=== PATIENT | female | born 1970 ===

== ENCOUNTER → 2022-08-21 12:44 | Outpatient (BNVA) | payer OTHER, SELFPAY | PROVIDERS: PCP Internal Medicine; Visit Provider Internal Medicine Rheumatology | DX: M47.812 Spondylosis without myelopathy or radiculopathy, cervical region (principal); M25.50 Pain in unspecified joint; M19.071 Primary osteoarthritis, right ankle and foot; M19.072 Primary osteoarthritis, left ankle and foot; M47.816 Spondylosis without myelopathy or radiculopathy, lumbar region; M79.7 Fibromyalgia | CPT/HCPCS: 99202 ==

== ENCOUNTER 2022-12-06 10:20 | Outpatient (AMB) | payer OTHER, SELFPAY ==
[2022-12-06 10:23] VITALS: BP 130/70; PULSE 65; TEMP 36.4; O2SAT 97
--- NOTE | 2022-12-06 10:23 | MHC.OFFVIS ---
Intake Vital Signs 12/06/22 10:23 Weight 187 lb 9.814 oz BP 130/70 Blood Pressure Location Rt brachial Position Sitting Pulse 65 Pulse Source Pulse Oximeter Temp 97.5 F Temp Source Tympanic Pulse Oximetry (%) 97 Oxygen Delivery Method Room Air Intake Visit Reasons: Polyarthralgia Pre Sales Technical Consultant Required: Yes Pre Sales Technical Consultant Name: #[id number] Allergies penicillins Allergy (Unknown, Uncoded 12/06/22 10:35) Itching Medication List - Last Reconciled 12/06/22 by Deisy Willingham RN acetaminophen ER 650 mg PO DAILY amlodipine 5 mg PO DAILY atorvastatin 80 mg PO DAILY cetirizine 10 mg PO DAILY cyclobenzaprine 10 mg PO BID gabapentin Two capsules at night for week, then 1 cap in the morning and 2 at night for week, then 1 cap in the morning and 3 capsules at night thereafter indapamide 1.25 mg PO QAM lidocaine 5% 1 patch topical DAILY metformin ER 500 mg PO DAILY omeprazole 20 mg PO DAILY triamcinolone acetonide 0.025% 1 appl topical BID HPI HPI Comments History of Present Illness Details The patient returns for evaluation of her osteoarthritis and fibromyalgia. Today's visit is facilitated through the use of the iPad translating service. She seems to be tolerating the gabapentin, taking 100 mg in the morning and 300 mg at night. She does not think there has been any improvement in her pain syndrome. She still describes fairly widespread muscle, bone and joint pains. This includes pains in the neck, shoulders, hands, lower back, buttock region, and knees. She did receive a trochanteric corticosteroid injection at [place] for left trochanteric bursitis. That helped to some degree. So far the gabapentin has not been sedating and she does not have any trouble with cognitive activities after taking the gabapentin. [facility] Medical History Helicobacter pylori stool test positive Surgical History H/O vaginal hysterectomy Hx of colonoscopy Family History Sister Breast cancer Father FH: prostate cancer Mother Leukemia Sister Colon polyps Brother Lymphoma Social History Alcohol intake: never Patient Tobacco Use Status: Never used Tobacco e-Cigarette/Vaping Use: Never Used Review of Systems Const Details: Low energy persists. Negative for appetite change, weight change, fever, chills, malaise Eyes Details: Negative for vision change, dry eyes,headaches and dizziness Card Details: Negative chest pain, edema and syncope Resp Details: Negative for SOB, cough and wheezing GI Details: Negative indigestion/heartburn, nausea, abdominal pain, bowel changes, diarrhea, constipation and bloody stool. Endo Details: Negative for polyuria and polydypsia Nando/Lymph Details: Negative for excessive bruising or bleeding. Physical Exam Vital Signs: Last Vital Signs Temp 97.5 F 12/06/22 10:23 Pulse 65 12/06/22 10:23 BP 130/70 12/06/22 10:23 Pulse Ox 97 12/06/22 10:23 Oxygen Delivery Method Room Air 12/06/22 10:23 APPEARANCE: Patient in no acute distress EYES no redness, pupils equal and reactive to light, eyelids normal. No temporal artery tenderness, redness or swelling. Cervical Spine:? Mild pain with extremes of range of motion and some mild cervical muscle tenderness. Thoracic Spine:.? No scoliosis.? No tenderness on palpation. Lumbar Spine:.? Alignment normal.? Full range of motion with mild pain at the extremes.? There is some paraspinal muscle tenderness. Chest Wall:.? No tenderness, swelling, increased warmth or erythema. Hands:.? Right: Normal pain-free range of motion.? There is some tenderness at the thumb CMC and thumb MCP.? No swelling.? No triggering, sensory loss or thenar atrophy.? Left:? Mild tenderness across the 2nd and 3rd MCP joint without swelling.? Otherwise the joints have normal pain-free range of motion without tenderness, swelling, increased warmth or erythema.? There is no thenar atrophy or sensory loss. Wrists:? Mild discomfort with flexion extension at 60 degrees with some slight tenderness but no swelling, increased warmth or erythema. Elbows: Normal pain-free range of motion without tenderness, swelling, increased warmth or erythema. Shoulders:? Right: Slight discomfort with extremes of normal range of motion with some in trapezius and anterior tenderness.? No abductor weakness or adenopathy.? Left: Mild pain with abduction 150 degrees or with extremes of internal or external rotation.? There is mild anterior tenderness without abductor weakness, swelling or adenopathy. Hips:? Full range of motion with some slight lateral buttock and posterior buttock pain at the extremes of external rotation or abduction.? There is no groin pain with motion. Hip bursa:.? Mild bilateral trochanteric tenderness. Knees:?? Normal pain-free range of motion with mild patellofemoral crepitus.? There is some slight medial compartment tenderness but no effusion, soft tissue swelling, increased warmth or erythema.? Ankles:.? Normal pain-free range of motion without tenderness, swelling, increased warmth or erythema. Feet:.? Normal pain-free range of motion with slight tenderness in the instep and MTP joints but no swelling, increased warmth or erythema. Tender points:? Mild tenderness to digital palpation at the occiput, trapezius, second rib, lateral epicondyle, knees, greater trochanter and gluteal area bilaterally. ? Assessment & Plan Assessment & Plan (1) Cervical osteoarthritis: Code(s): M47.812 - Spondylosis without myelopathy or radiculopathy, cervical region (2) Osteoarthritis of lumbar spine: Code(s): M47.816 - Spondylosis without myelopathy or radiculopathy, lumbar region (3) Fibromyalgia: Code(s): M79.7 - Fibromyalgia Plan Fibromyalgia with no apparent improvement with the low doses of gabapentin. She of course also has findings of osteoarthritis in the cervical and lumbar spine regions which would not be expected to respond much to the gabapentin treatment. She does take occasional cyclobenzaprine at nighttime if she cannot sleep well and uses acetaminophen during the daytime as well. We discussed possibly higher doses of gabapentin might be helpful for her. We will double the dose to 200 mg in the morning and 600 mg at night. She was warned that the increased dose of the gabapentin could cause more sedation. She could cut the dose of gabapentin back if she gets too sedated. Light aerobic activity is encouraged. Today's visit including review of her [place] record, today's history, exam, and treatment plan took 32 minutes. A follow-up is scheduled for\n 3-4 months. [address] Medications: Changed From gabapentin Two capsules at night for week, then 1 cap in the morning and 2 at night for week, then 1 cap in the morning and 3 capsules at night thereafter 120 caps 0RF migraine M79.7 - Fibromyalgia To gabapentin Two capsules in AM and 6 cap at night 240 caps 3RF migraine M79.7 - Fibromyalgia Coding Level of Care Code Est Pt Level 4 (49042) Diagnoses Cervical osteoarthritis M47.812 Osteoarthritis of lumbar spine M47.816 Fibromyalgia M79.7
== END 2022-12-06 11:06 | disposition home or self-care (01) ==
PROVIDERS: PCP Internal Medicine; Visit Provider Internal Medicine Rheumatology
DX: M47.812 Spondylosis without myelopathy or radiculopathy, cervical region (principal); M47.816 Spondylosis without myelopathy or radiculopathy, lumbar region; M79.7 Fibromyalgia
CPT/HCPCS: 99214

== ENCOUNTER → 2022-12-06 10:20 | Outpatient (BNVA) | payer OTHER, SELFPAY | PROVIDERS: PCP Internal Medicine; Visit Provider Internal Medicine Rheumatology | DX: M47.812 Spondylosis without myelopathy or radiculopathy, cervical region (principal); M47.816 Spondylosis without myelopathy or radiculopathy, lumbar region; M79.7 Fibromyalgia | CPT/HCPCS: 99212 ==

== ENCOUNTER 2023-03-05 13:09 | Outpatient (AMB) | payer OTHER, SELFPAY ==
[2023-03-05 13:11] VITALS: BP 138/73; PULSE 73; TEMP 36.1; O2SAT 98; BMI 37.5
--- NOTE | 2023-03-05 13:11 | MHC.OFFVIS ---
Intake Vital Signs 03/05/23 13:11 Height 5 ft 1 in Weight 198 lb 6.656 oz BMI 37.5 BP 138/73 Blood Pressure Location Lt brachial Position Sitting Pulse 73 Pulse Source Pulse Oximeter Temp 97 F Temp Source Skin Pulse Oximetry (%) 98 Oxygen Delivery Method Room Air Intake Visit Reasons: RA/OA Intake Note: Patient presents today to follow up on RA/OA. Commercial Field Inspector Required: Yes Commercial Field Inspector Language: [employer] Name: Shane [id number] Accompanied by: Self / Same As Patient Allergies penicillins Allergy (Unknown, Uncoded 03/05/23 13:13) Itching Medication List - Last Reconciled 03/05/23 by Alejandro Ayala MD acetaminophen ER 650 mg PO DAILY atorvastatin 80 mg PO DAILY buspirone 5 mg PO TID cyclobenzaprine 10 mg PO BID fluoxetine 10 mg PO DAILY gabapentin Two capsules in AM and 6 cap at night hydroxyzine HCl 10 mg PO TID lidocaine 5% 1 patch topical DAILY lisinopril 5 mg PO DAILY metformin ER 500 mg PO DAILY omeprazole 20 mg PO DAILY trazodone 50 mg PO BEDTIME triamcinolone acetonide 0.025% 1 appl topical BID HPI HPI Comments History of Present Illness Details The patient presents today for evaluation of her fibromyalgia. We use the [email or web address] translating service to facilitate the visit. She again describes pain that is fairly widespread involving the shoulders, arms, hips, lower back and knees. She is on gabapentin now taking 200 mg in the morning and 600 mg in the evening. This has helped to some degree. She also supplements the evening dose with cyclobenzaprine and trazodone at times and with fluoxetine 10 mg daily, lidocaine patches and acetaminophen during the daytime. She denies any daytime sedation with this regimen. It seems the right shoulder and arm of the most problematic areas for her. She does recall a distant injury to the shoulder. There may have been some distant courses of physical therapy for the shoulder as well. [facility] Medical History Helicobacter pylori stool test positive Surgical History Hx of colonoscopy H/O vaginal hysterectomy Family History Sister Breast cancer Father FH: prostate cancer Mother Leukemia Sister Colon polyps Brother Lymphoma Social History Alcohol intake: never Patient Tobacco Use Status: Never used Tobacco e-Cigarette/Vaping Use: Never Used Review of Systems Const Details: Low energy at times. Negative for appetite change, weight change, fever, chills, malaise Skin/Breast Details: Negative for itching, rash, hives, Raynaud's symptoms, sun sensitivity, and skin cancer Endo Details: Negative for polyuria and polydypsia Nando/Lymph Details: Negative for excessive bruising or bleeding. Physical Exam Vital Signs: Last Vital Signs Temp 97 F 03/05/23 13:11 Pulse 73 03/05/23 13:11 BP 138/73 03/05/23 13:11 Pulse Ox 98 03/05/23 13:11 Oxygen Delivery Method Room Air 03/05/23 13:11 BMI result Body Mass Index 37.5 APPEARANCE: Patient in no acute distress EYES no redness, pupils equal and reactive to light, eyelids normal. No temporal artery tenderness, redness or swelling. Joint exam: Cervical Spine:? Mild pain with extremes of range of motion and some mild cervical muscle tenderness. Thoracic Spine:.? No scoliosis.? No tenderness on palpation. Lumbar Spine:.? Alignment normal.? Full range of motion with mild pain at the extremes.? There is some paraspinal muscle tenderness. Chest Wall:.? No tenderness, swelling, increased warmth or erythema. Hands:.? Right: Normal pain-free range of motion.? There is some tenderness at the thumb CMC and thumb MCP.? No swelling.? No triggering, sensory loss or thenar atrophy.? Left:? Mild tenderness across the 2nd and 3rd MCP joint without swelling.? Otherwise the joints have normal pain-free range of motion without tenderness, swelling, increased warmth or erythema.? There is no thenar atrophy or sensory loss. Wrists:? Mild discomfort with flexion extension at 60 degrees with some slight tenderness but no swelling, increased warmth or erythema. Elbows: Normal pain-free range of motion without tenderness, swelling, increased warmth or erythema. Shoulders:? Right: Mild pain with abduction 120 degrees or with more than 20 degrees of internal or external rotation. Pain is felt over the anterior top of the shoulder area. There is mild tenderness anteriorly, in the subacromial region, and posteriorly. I do not really detect any abductor weakness or adenopathy.? Left: Mild pain with the extremes of normal abduction or with extremes of internal or external rotation.? There is mild anterior tenderness without abductor weakness, swelling or adenopathy. Hips:? Full range of motion with some slight lateral buttock and posterior buttock pain at the extremes of external rotation or abduction.? There is no groin pain with motion. Hip bursa:.? Mild bilateral trochanteric tenderness. Knees:?? Normal pain-free range of motion with mild patellofemoral crepitus.? There is some slight medial compartment tenderness but no effusion, soft tissue swelling, increased warmth or erythema.? Ankles:.? Normal pain-free range of motion without tenderness, swelling, increased warmth or erythema. Feet:.? Normal pain-free range of motion with slight tenderness in the instep and MTP joints but no swelling, increased warmth or erythema. Tender points:? Mild tenderness to digital palpation at the occiput, trapezius, second rib, lateral epicondyle, knees, greater trochanter and gluteal area bilaterally. ?? Office Procedures Joint Injection/Drain Joint Injection/Drain Primary Site: right shoulder Injected: 40 mg of, with 1 mL of and 1% plain lidocaine Coding Details: The right shoulder was prepped ChloraPrep and alcohol. The subacromial space was injected with 40 mg of triamcinolone and 1 cc of lidocaine. Patient tolerated the procedure well no apparent immediate side effects. 63515 - Large joint Procedure code (CPT) selection complete Assessment & Plan Assessment & Plan (1) Osteoarthritis of lumbar spine: Code(s): M47.816 - Spondylosis without myelopathy or radiculopathy, lumbar region (2) Cervical osteoarthritis: Code(s): M47.812 - Spondylosis without myelopathy or radiculopathy, cervical region (3) Right rotator cuff tendonitis: Code(s): M75.81 - Other shoulder lesions, right shoulder (4) Fibromyalgia: Code(s): M79.7 - Fibromyalgia Plan The the patient continues with widespread pain with many areas of tender joints and muscles, but no joint swelling. This again looks like a picture of fibromyalgia. There is likely some osteoarthritis in the cervical lumbar spine regions. She is not a good candidate for NSAIDs because of the GERD symptoms she has had before. She says that her right shoulder is more uncomfortable than the other joints and was helped in the past with a corticosteroid injection. Another injection today is proposed. Reviewed potential benefits and side effects of such injections. The right shoulder was prepped ChloraPrep and alcohol. The subacromial space was injected with 40 mg of triamcinolone and 1 cc of lidocaine. Patient tolerated the procedure well no apparent immediate side effects. She will rest it for a few days and then begin some gentle, [id number] exercises for the shoulder. She will stay with the current medications for now. Orders: Orders AMB Joint Injection/Aspiration Today M75.81 - Other shoulder lesions, right shoulder Coding Level of Care Code Est Pt Level 3 (72465) Diagnoses Osteoarthritis of lumbar spine M47.816 Cervical osteoarthritis M47.812 Right rotator cuff tendonitis M75.81 Fibromyalgia M79.7 CPT Codes Coding - 99390 Large joint: 37121 - Large joint ([id number])
== END 2023-03-05 13:50 | disposition home or self-care (01) ==
PROVIDERS: PCP Internal Medicine; Visit Provider Internal Medicine Rheumatology
DX: M79.7 Fibromyalgia (principal); M47.816 Spondylosis without myelopathy or radiculopathy, lumbar region; M47.812 Spondylosis without myelopathy or radiculopathy, cervical region; M75.81 Other shoulder lesions, right shoulder
CPT/HCPCS: 20610; 99213

== ENCOUNTER → 2023-03-05 13:09 | Outpatient (BNVA) | payer OTHER, SELFPAY | PROVIDERS: PCP Internal Medicine; Visit Provider Internal Medicine Rheumatology | DX: M75.81 Other shoulder lesions, right shoulder (principal); M47.816 Spondylosis without myelopathy or radiculopathy, lumbar region; M47.812 Spondylosis without myelopathy or radiculopathy, cervical region; M79.7 Fibromyalgia | CPT/HCPCS: 20610; 99212; J3301 ==

== ENCOUNTER 2024-04-02 07:42 | Outpatient (AMB) | payer OTHER, SELFPAY ==
--- NOTE | 2024-04-02 07:46 | A.OFFVIS_ITS ---
Vital Signs 04/02/24 07:47 Height 5 ft 1 in Weight 175 lb 7.807 oz BMI 33.2 BP 150/86 H Blood Pressure Location Lt brachial Position Sitting Pulse 58 Pulse Source Pulse Oximeter Pulse Oximetry (%) 98 Oxygen Delivery Method Room Air Intake Visit Reasons: RA/CM Intake Note: Patient present today for RA office visit. Field Examiner Required: Yes Field Examiner Language: Frisian Accompanied by: Self / Same As Patient Allergies penicillins Allergy (Unknown, Uncoded 04/02/24 07:51) Itching Medication List - Last Reconciled 04/02/24 by Pallavi Gregory MD acetaminophen ER 650 mg PO DAILY atorvastatin 80 mg PO DAILY buspirone 5 mg PO TID cyclobenzaprine 10 mg PO BID fluoxetine 10 mg PO DAILY gabapentin Two capsules in AM and 6 cap at night hydroxyzine HCl 10 mg PO TID lidocaine 5% 1 patch topical DAILY lisinopril 5 mg PO DAILY metformin ER 500 mg PO DAILY omeprazole 20 mg PO DAILY trazodone 50 mg PO BEDTIME triamcinolone acetonide 0.025% 1 appl topical BID HPI Comments Details: Patient is a 53-year-old female with hyperlipidemia, hypertension, diabetes p resents today for follow-up. Provider spoke with patient in her chitina language Interval History: Patient has seen 03/05/[address] Alejandro Ayala. At that time she received a right shoulder injection in the subacromial space Today she complains of whole-body pain in particular right outer hip, hands and shoulders Rheumatologic History: Patient presented for initial evaluation 08/21/2022. At that time she was complaining of total body pain of 15-20 years duration. The exam was not consistent with active inflammatory arthritis. Diagnosis of fibromyalgia was made as well as osteoarthritis based on radiographs done at [facility]. OA involving 1st MTP joints in the feet, cervical spine and lumbar spine. Current Rheumatology Medication(s): Gabapentin 200 mg in the morning, 600 mg in the evening Cyclobenzaprine 10 mg b[facility]d. [facility] Medical History (Updated 04/02/24 @ 09:48 by Pallavi Gregory MD) NSAID long-term use Polyarticular osteoarthritis Trochanteric bursitis, right hip Helicobacter pylori stool test positive Surgical History (Updated 04/02/24 @ 07:53 by DANIAL Leon) History of bladder surgery Hx of colonoscopy H/O vaginal hysterectomy Family History Sister Breast cancer Father FH: prostate cancer Mother Leukemia Sister Colon polyps Brother Lymphoma Social History Alcohol intake: never Patient Tobacco Use Status: Never used Tobacco e-Cigarette/Vaping Use: Never Used Review of Systems Const Details: Review of Systems Constitutional: Denies fever, chills, weight loss ENT: Denies vision changes, eye pain or eye redness, dental caries, dry mouth GI: Denies nausea, vomiting, diarrhea, abdominal pain, change in BM Pulm: Denies SOB, BOO, hemoptysis, wheezing Cards: Denies chest pain, palpitations Skin: Denies Raynaud's, rash, nail changes, photosensitivity, IP COUNSEL: Denies headaches, weakness, paresthesias, recurrent falls MSK: as per HPI All other systems reviewed and are unremarkable except noted above Physical Exam Vital Signs: Last Vital Signs Pulse 58 04/02/24 07:47 BP 150/86 H 04/02/24 07:47 Pulse Ox 98 04/02/24 07:47 Oxygen Delivery Method Room Air 04/02/24 07:47 BMI result Body Mass Index 33.2 Physical Examination CONSTITUITIONAL Patient alert and cooperative. Well appearing and in no apparent painful distress HEENT Conjunctiva and sclera clear. ?Pupils equal round and reactive to light. ?No lymphadenopathy. CHEST/RESPIRATORY SYSTEM Normal respiratory effort and able to speak in complete sentences. ?Clear to auscultation bilaterally. ?No crackles, rales, rhonchi, wheezes heard. CARDIAC SYSTEM Regular rate and rhythm. ?S1 and S2 heard no murmurs. ?Radial pulses intact bilaterally MSK Hands: ?Good health analytics consultant strength bilaterally ?No deformities noted. ?No synovitis noted to the MCPs, PIPs or DIPs. ?No swelling noted Wrists: ?Full range of motion at the wrists without pain. ?No tenderness to palpation or synovitis noted to the wrists. Elbows: Full range of motion without pain. No tenderness, weakness, swelling, increased warmth or erythema. Shoulders: Full range of motion without pain. No tenderness, weakness, swelling, increased warmth or erythema. Hips: Full range of motion without pain. Hip bursa: Exquisite tenderness to palpation of the right hip bursa Knees: ?Full range of motion. ?No tenderness, swelling, increased warmth or erythema.? Bilateral crepitations noted Ankles: Full range of motion. ?No tenderness, swelling, increased warmth or erythema.? Feet: ?Negative squeeze test. ?No tenderness to palpation or swelling of the MTPs. Tender points:??Tenderness to palpation of the neck shoulders intertrochanteric, low back. SKIN Skin intact without rashes. Office Procedures AMB Joint Injection/Aspiration Joint Injection/Aspiration Details: Procedure was explained to the patient and consent was obtained. ? The right greater trochanteric bursa was identified and confirmed with patient. ?This was subsequently cleaned with chlorhexidine x3. ? The area was then anesthetized using ethyl chloride spray. 40 mg Kenalog with 1 cc 1% lidocaine was injected without issue. ?No bleeding. ?Patient tolerated procedure. Primary Site: other (Right greater trochanteric bursa) Prep: site was prepped using aseptic technique and ethochloride spray was applied Injected: 40 mg of, DepoMedrol, with 1 mL of and 1% plain lidocaine Approach Used: other Procedure: The patient tolerated the procedure well Coding 73886 - Glenohumeral/Tronchanteric Bursa/Intraarticular Procedure code (CPT) selection complete Office Meds Kenalog 40 mg/mL suspension for injection Performing Provider: Pallavi Gregory MD Performing Location[place] [facility] [place] Administered by: Pallavi Gregory MD on 04/02/24 08:40 Dose Route Admin Location Dispensed Lot Number Expiration Date [facility] Fire Medic 40 mg intrabursal Right greater trochanter 1 mL [id number] 10/28/26 [address]-6 [employer] lidocaine (PF) 10 mg/mL (1 %) injection solution Performing Provider: Pallavi Gregory MD Performing Location: [facility] [place] Administered by: Pallavi Gregory MD on 04/02/24 08:40 Dose Route Admin Location Dispensed Lot Number Expiration Date [facility] Fire [employer] 10 mg Infiltration Right greater trochanter 2 mL [id number] 07/29/26 17381-034-45 [employer] Results Reviewed Results Reviewed: Last lab results seen in chart are from 08/21/2022. ESR 7, RF negative, LAURA negative Assessment & Plan Assessment & Plan (1) Fibromyalgia: Code(s): M79.7 - Fibromyalgia Category: Medical Plan: #Fibromyalgia Pain not well controlled. We will try increasing her gabapentin to 400 in the morning and 800 at night, it is not that sedating for her. RTC 4 months (2) Trochanteric bursitis, right hip: Code(s): M70.61 - Trochanteric bursitis, right hip Category: Medical Plan: #Right greater trochanteric bursitis Status post injection 40 mg Kenalog today We will revisit this next time. Patient may benefit from stretches (3) Polyarticular osteoarthritis: Code(s): M15.9 - Polyosteoarthritis, unspecified Category: Medical Plan: #Polyarticular OA Patient with polyarticular RA involving her hands, lumbar spine, neck and shoulders. She has had issues with GERD in the past but she is willing to try Celebrex We will trial 1 tablets twice a day. Checking labs including CMP. (4) NSAID long-term use: Code(s): Z79.1 - community relations manager (current) use of non-steroidal anti-inflammatories (NSAID) Category: Medical Plan: #Long-term Use of NSAIDs Discussed with patient the benefits and risk of NSAIDs for managing the rheumatic condition Benefits include: - Reduced the pain, improved mobility, and increased participation in activities Risks include: - GI upset, potential also worsening or formation (especially in patients > 65 years old) Recommended using proton pump inhibitors (PPIs) for the duration of NSAID use to reduce the risk of gastric ulcers Plan I spent 20 minutes reviewing the record and labs, seeing the patient, discussing the treatment plan and documenting in the medical record ? Orders: Orders Complete Blood Count Auto Diff Today M70.61 - Trochanteric bursitis, right hip, M79.7 - Fibromyalgia C Reactive Protein Today M70.61 - Trochanteric bursitis, right hip, M79.7 - Fibromyalgia Comprehensive Met. Panel Today M70.61 - Trochanteric bursitis, right hip, M79.7 - Fibromyalgia Erythrocyte Sedimentation Rate Today M70.61 - Trochanteric bursitis, right hip, M79.7 - Fibromyalgia AMB Joint Injection/Aspiration Today M70.61 - Trochanteric bursitis, right hip Medications: New celecoxib (Celebrex) 200 mg PO BID 180 caps 1RF 90 days M19.071 - Primary osteoarthritis, right ankle and foot, M19.072 - Primary osteoarthritis, left ankle and foot, M47.812 - Spondylosis without myelopathy or radiculopathy, cervical region, M47.816 - Spondylosis without myelopathy or radiculopathy, lumbar region diclofenac sodium 1% (Arthritis Pain (diclofenac)) apply to knees, hands and shoulders three times a day 4 grams topical TID 100 grams 4RF Kenalog (triamcinolone acetonide) 40 mg intrabursal ONCE 1 mL 0RF NS M70.61 - Trochanteric bursitis, right hip lidocaine (PF) 10 mg Infiltration ONCE 2 mL 0RF M70.61 - Trochanteric bursitis, right hip Changed From gabapentin Two capsules in AM and 6 cap at night 240 caps 3RF migraine M79.7 - Fibromyalgia To gabapentin one capsule in the AM, two capsules at night; 240 caps 3RF M79.7 - Fibromyalgia Coding Level of Care Code Est Pt Level 3 (54289) Diagnoses Fibromyalgia M79.7 Trochanteric bursitis, right hip M70.61 Polyarticular osteoarthritis M15.9 NSAID long-term use Z79.1 CPT Codes Coding - Joint 7: 89737 - Glenohumeral/Tronchanteric Bursa/Intraarticular ([id number])
[2024-04-02 07:47] VITALS: BP 150/86; PULSE 58; O2SAT 98; BMI 33.2
== END 2024-04-02 08:37 | disposition home or self-care (01) ==
PROVIDERS: PCP Internal Medicine; Visit Provider Student in an Organized Health Care Education/Training Program
DX: M79.7 Fibromyalgia (principal); M70.61 Trochanteric bursitis, right hip; M15.9 Polyosteoarthritis, unspecified; Z79.1 Long term (current) use of non-steroidal anti-inflammatories (NSAID)
CPT/HCPCS: 20610; 99213

== ENCOUNTER → 2024-04-02 07:42 | Outpatient (BNVA) | payer OTHER, SELFPAY | PROVIDERS: PCP Internal Medicine; Visit Provider Student in an Organized Health Care Education/Training Program | DX: M15.9 Polyosteoarthritis, unspecified (principal); M79.7 Fibromyalgia; M70.61 Trochanteric bursitis, right hip; Z79.1 Long term (current) use of non-steroidal anti-inflammatories (NSAID) | CPT/HCPCS: 20610; 99212; J2003; J3300 ==

== ENCOUNTER 2024-04-02 08:42 | Outpatient (REF) | payer OTHER, SELFPAY ==
[2024-04-02 10:51] LABS: MANUAL DIFF FLAG NO
[2024-04-02 11:02] LABS: Basophils Absolute Auto 0.1 X10*3/uL (0.0-0.2); Eosinophils Absolute Auto 0.2 X10*3/uL (0.0-0.4); Eosinophils Percent Auto 3.3 % (0-4); Hematocrit 42.9 % (37.0-47.0); Hemoglobin 14.7 g/dl (12.0-16.0); Imm Gran Abs Auto 0.01 X10*3/uL (0.00-0.03); Imm Gran Pct Auto 0.2 % (0.0-0.4); Lymphocytes Absolute Auto 2.1 X10*3/uL (1.2-4.9); Mean Corpuscular HGB Conc 34.3 g/dl (31.0-35.0); Mean Corpuscular Hemoglobin 30.4 pg (27.0-33.0); Mean Corpuscular Volume 88.6 fL (80.0-98.0); Mean Platelet Volume 11.8 fL (9.4-12.3); Monocytes Absolute Auto 0.4 X10*3/uL (0.1-1.2); Neutrophils Absolute Auto 3.5 x10*3/uL (2.0-8.3); Neutrophils Percent Auto 55.5 % (45-73); Platelet Count 251 X10*3/uL (160-400); Red Blood Count 4.84 X10*6/uL (4.20-5.50); Red Cell Distribution Width 12.2 % (11.0-16.0); White Blood Count 6.3 X10*3/uL (4.8-10.8)
[2024-04-02 11:24] LABS: Alanine Aminotransferase 36 U/L (0-31); Albumin Level 4.7 g/dL (3.5-5.0); Anion Gap 12 (12-20); Aspartate Amino Transferase 31 U/L (5-31); Bilirubin Total 1.1 mg/dL (0.0-1.0); Blood Urea Nitrogen 11 mg/dL (9-16); C Reactive Protein < 0.10 mg/dL (< or = 0.50); Calcium 10.2 mg/dL (8.4-10.2); Carbon Dioxide 28 mmol/L (22-29); Chloride 105 mmol/L (96-108); Estimated Glomerular Filt Rate > 60; Glucose Random 106 mg/dL (60-115); Sodium 141 mmol/L (135-145); Total Protein 7.5 g/dL (6.5-8.0)
[2024-04-02 11:51] LABS: Erythrocyte Sedimentation Rate 9 MM/HR (0-20)
[2024-04-02 12:27] LABS: Alkaline Phosphatase 101 U/L (39-117)
== END 2024-04-02 08:43 | disposition home or self-care (01) ==
LOC: HO.10HDL 08:42
PROVIDERS: Visit Provider Student in an Organized Health Care Education/Training Program
DX: M70.61 Trochanteric bursitis, right hip (principal); M79.7 Fibromyalgia
CPT/HCPCS: 36415; 80053; 85025; 85652; 86140

== ENCOUNTER 2024-09-17 13:32 | Outpatient (REF) | payer OTHER, SELFPAY ==
--- OUTSIDE RECORDS SUMMARY | 2024-09-17 14:08 | XMS_ITS | Clinical Summary ---
Author Organization [facility] [address] [facility] Address [address], [place] Phone Care Team Providers Care Lead Mason Tender Name Role Phone Julieth Cain MD Primary Care Provider [phone] Allergies Active Allergy Reactions Criticality Noted Date Comments Lisinopril Cough 10/18/2022 Penicillins Other 01/05/2011 Odor Medications blood sugar diagnostic (FreeStyle Lite Strips) test strip USE TO TEST BLOOD SUGAR TWICE DAILY 4 Active FREESTYLE LANCETS MISC USE TO TEST BLOOD SUGAR TWICE DAILY 4 Active ibuprofen (ADVIL,MOTRIN) 600 mg tablet Take 1 Tablet by mouth every 6 hours as needed for Pain. 4 Active omeprazole (PriLOSEC) [address] capsule Take 1 capsule (20 mg total) by mouth 1 (one) time each day. 4 Active albuterol HFA (Ventolin HFA) 90 mcg/actuation inhaler INHALE 1 PUFF INTO THE LUNGS EVERY 4 HOURS NEEDED FOR COUGH OR WHEEZING. 4 Active fluticasone propionate (FLONASE) 50 mcg/actuation nasal spray 2 Sprays by Nasal route daily. 4 Active busPIRone (BUSPAR) 5 mg tablet 3 times daily as needed. 3 Active FLUoxetine (PROzac) 10 mg capsule 1 (one) time each day. 3 Active hydrOXYzine HCL (ATARAX) 10 mg tablet as needed. 3 Active traZODone (DESYREL) 50 mg tablet at bedtime. 3 Active gabapentin (NEURONTIN) 100 mg capsule Take 3 Capsules by mouth 2 times daily. 3 Active blood-glucose meter kit [place] para chequear la azucar pierre ves al crystal 3 Active ACETAMINOPHEN ORAL Take by mouth. Active metFORMIN XR (GLUCOPHAGE-XR) 500 mg 24 hr tabletIndications: Type 2 diabetes mellitus without complications ([facility] V24, [facility] V28) TAKE 1 TABLET BY MOUTH TWICE A DAY WITH MEALS 180 tablet 1 4 Active FreeStyle Lancets 28 gauge lancetsIndications :Type 2 diabetes mellitus without complications ([facility] V24, [facility] V28) USE TO TEST BLOOD SUGAR TWICE DAILY 200 each 3 5 Active polyethylene glycol (MIRALAX) 17 gram packet Take 17 g by mouth 1 (one) time each day. Active rosuvastatin (CRESTOR) 20 mg tablet TAKE 1 TABLET BY MOUTH EVERY DAY 90 tablet 1 5 Active amLODIPine (NORVASC) 5 mg tablet TAKE 1 TABLET BY MOUTH EVERY DAY 90 tablet 1 5 Active solifenacin (VESICARE) 5 mg tablet TAKE 1 TABLET BY MOUTH EVERY DAY 90 tablet 1 5 Active BD Alcohol Swabs pads, medicatedIndicatio ns:Type 2 diabetes mellitus without complications ([facility] V24, [facility] V28) APPLY 1 PIECE TOPICALLY ONCE. 100 each 2 5 Active Active Problems Problem Noted Date Diagnosed Date Fibromyalgia 08/23/2022 COVID-19 05/16/2021 Overview (01/29/2024): 04/25/21 Hyperlipidemia 07/09/2019 Type 2 diabetes mellitus wit h obesity ([facility] V24, [facility] V28) 07/09/2019 Type 2 diabetes mellitus wit hout complication, without long-term current use of insulin ([facility] V24, [facility] V28) 07/09/2019 Hypertension 05/09/2019 DERIK (stress urinary incontinence, female) 2019 Helicobacter pylori stool test positive 12/17/19 19 Overview (01/29/2024): Treated 11/2018 Plantar fasciitis 07/05/2011 RLS (restless legs syndrome) 07/05/2011 S/P vaginal hysterectomy 06/15/2008 Overweight (BMI 25.0-29.9) 05/26/2008 Hirsutism 07/07/2005 Immunizations Name Administration Dates Next Due Influenza Quadravalent, MDCK , 0.5ml, preservative free (Flucelvax) 6mo and older 01/03/2023,02/24/2022,02/23/2021,2018 Influenza Quadravalent, MDCK , 0.5ml, with preservative (Flucelvax) 6mo and older 01/03/2018 Influenza trivalent, with preservative (Fluzone; Afluria) 6mo and older 02/06/2017,02/04/2015,01/07/2014,2008 PPD Test 01/15/2019 Td Tetanus diptheria (Tdvax) 7yo and older 07/15/2004 Tdap Tetanus diptheria acell ular pertussis (Boostrix; Adacel) 7yo and older 09/28/2022,09/02/2012 Zoster recombinant (Shingrix ) 19yo and older 09/20/2021,07/04/2021 Surgical History Surgery Date Site/Laterality Comments HYSTERECTOMY PROCEDURE: HISTORICAL HYSTERECTOMY; COMMENT: pelvic relaxation 1998 COLONOSCOPY 02/2019 PROCEDURE: HISTORICAL COLONOSCOPY Medical History Medical History Date Comments Hirsutism 07/07/2005 DX:Hirsutism Plantar fasciitis 07/05/2011 DX:Plantar fas ciitis RLS (restless legs syndrome) 07/05/2011 DX: RLS (restless legs syndrome) Family History Medical History Relation Name Comments Throat cancer Aunt 1 maternal aunt Breast cancer Aunt 2 paternal aunt; dx age > 50; unilateral Lymphoma Brother Prostate cancer Father Leukemia Mother Brain cancer Other nephew- at Breast cancer Sister 1 at age 42 unilateral; pereira rvivor Colon polyps Sister 2 ? total number Prostate cancer Uncle 1 maternal unc le Other: liver cancer Uncle 2 Other: skin cancer Uncle 3 paternal uncle; ? primary type; dx > 50 Blindness Neg Hx Cataracts Neg Hx Glaucoma Neg Hx Macular degeneration Neg Hx Strabismus Neg Hx Relation Name Status Comments Aunt 1 Aunt 2 Brother Father Mother Other Sister 1 at age 42 Alive Sister 2 Uncle 1 Uncle 2 Uncle 3 Social History Tobacco Use Types Packs/Day Years Used Date Smoking Tobacco: Never Smokeless Tobacco: Never Tobacco Cessation:Counseling Given: Not Answered Alcohol Use Standard Drinks/Week Comments No 0 (1 standard drink = 0.6 oz pur e alcohol) Comments Unknown Sex and Gender Information Value Date Recorded Sex Assigned at Not on file Legal Sex Female 8:50 AM EST Gender Identity Not on file Sexual Orientation Not on file Obstetrics History Last Filed Vital Signs Vital Sign Reading Time Taken Comments Blood Pressure 122/72 06/05/2024 1:55 PM EST Pulse 72 06/05/2024 1:55 PM EST Temperature 36.7 ??C (98 ??F) 06/05/2024 1:55 PM EST Respiratory Rate 14 06/05/2024 1:55 PM EST Oxygen Saturation - - Inhaled Oxygen Concentration - - Weight 85.3 kg (188 lb) 06/05/2024 1:55 PM EST Height 154.9 cm (5' 1 ) 06/05/2024 1:55 PM EST Body Mass Index 35.52 06/05/2024 1:55 PM EST Plan of Treatment Upcoming Encounters Date Type Department Care Team (Late st Contact Info) Description 11/11/2024 9:10 AM EDT Appointment Radiology Department [address] [id number] Health Maintenance Due Date Last Done Comments Diabetes: Annual Foot Exam 1978 Hepatitis B Vaccines (1 of 3 - 19+ 3-dose series) 08/20/1987 Pneumococcal Vaccine: 50+ Years (1 of 2 - PCV) 08/20/1987 Pneumococcal Vaccine: Pediatrics (0 to 5 Years) and At-Risk Patients (6 to 64 Years) (1 of 2 - PCV) 08/20/1987 Depression Screening 04/08/2022 HIV Screening 04/08/2022 Social Influencers of Health Screening 04/08/2022 COVID-19 Vaccine ( season) 2023 Diabetes: Annual Urine Albumin-Creatinine Ratio (uACR) 10/29/2024 10/30/2023 Diabetes: Blood Sugar Control Test (HGBA1C) 12/03/2024 06/05/2024, 01/31/2024, 10/30/2023, Additional history exists Diabetes: Annual GFR (Glomerular Filtration Rate) 01/22/2025 01/23/2024, 01/23/2024 Hypertension/CHF/CAD Annual BMP Blood Test 01/22/2025 01/23/2024, 01/23/2024 Diabetes: Annual Retina Eye Exam 03/20/2025 03/20/2024 Breast Cancer Screening 11/01/2025 11/02/19, 11/02/2023, 10/24/2022, Additional history exists Cholesterol Screening (Lipid Panel) 10/29/2028 10/30/2023, 10/30/2023 Colorectal Cancer Screening: Colonoscopy 03/18/2029 03/18/2019 DTaP,Tdap,and Td Vaccines (4 - Td or Tdap) 09/28/2032 09/28/2022, 09/02/2012, 07/15/2004 Zoster Vaccines Completed 09/20/2021, 07/04/2021 Hepatitis C Screening Completed 10/25/2021 Influenza Vaccine Completed 01/09/2024, , 02/24/2022, Additional history exists HIB Vaccines Aged Out No longer eligi ble based on patient's age to complete this topic HPV Vaccines Aged Out No longer eligi ble based on patient's age to complete this topic Hepatitis A Vaccines Aged Out No long er eligible based on patient's age to complete this topic IPV Vaccines Aged Out No longer eligi ble based on patient's age to complete this topic MMR Vaccines Aged Out No longer eligi ble based on patient's age to complete this topic Meningococcal ACWY Vaccine Aged Out N o longer eligible based on patient's age to complete this topic Meningococcal B Vaccine Aged Out No l onger eligible based on patient's age to complete this topic RSV Immunization Patients Under 20 months Aged Out No longer eligible based on patient's age to complete this topic Varicella Vaccines Aged Out No longer eligible based on patient's age to complete this topic Procedures Procedure Name Priority Date/Time Associated Diagnosis Comments HEMOGLOBIN A1C Routine 06/05/2024 2:41 PM EST Type 2 diabetes mellitus without complication, without long-term current use of insulin ([facility] V24, [facility] V28) EXTERNAL DIABETIC RETINA EYE EXAM 03/20/2024 ANNUAL BMP BLOOD TEST Routine 01/23/2024 SCREENING MAMMOGRAPHY BI 2-VIEW BREAST INC CAD Routine 11/02/2023 8:48 AM EDT Encounter for screening mammogram for malignant neoplasm of breast URINE ALBUMIN CREATININE RATIO Routine 10/30/2023 LIPID PANEL Routine 10/30/2023 HEPATITIS C SCREENING Routine 10/25/2021 COLONOSCOPY Routine 03/18/2019 from Last 3 Months or Most Recently Relevant to Health Maintenance Results * Hemoglobin A1c (06/05/2024 2:41 PM EST) Hemoglobin A1C 6.2 <6.5 % LAB CHEMISTRY METHOD 06/05/2024 8:13 PM EST [facility] Mean Bld Glu Estim. 131 mg/dL LAB CHEMISTRY METHOD 06/05/2024 8:13 PM EST [facility] Blood Venous blood specimen / Unknown Venipuncture / Unknown 06/05/2024 2:41 PM EST 06/05/2024 2:41 PM EST us Adriana FERGUSON LAB BLOOD ORDERABLES Final Res ult [facility] [address] [place] [address], [place] [phone] * External Diabetic Retina Eye Exam Report (03/20/2024) Anatomical Region Laterality Modality Ultrasound us Provider [facility] US PROCEDURES Final Result * Annual BMP Blood Test (01/23/2024) Annual BMP Blood Test abstracted us Historical Provider HEALTH MAINTENANCE Final Result * SCREENING MAMMOGRAPHY BI 2-VIEW BREAST INC CAD (11/02/2023 8:48 AM EDT) Anatomical Region Laterality Modality Radiographic Johnna ging 10/24/2022 9:31 AM EDT Narrative 11/02/2023 4:08 PM EDT This is a summary report. The complete report is available in the patient's medical record. If you cannot access the medical record, please contact the sending organization for a detailed fax or copy. BILATERAL 3D DIGITAL SCREENING MAMMOGRAM History: Routine screening. ??No current breast complaints. ??Family history of breast cancer in sister and aunt Comparison: Multiple priors dating back to 10/13/2020 Technique: Bilateral full-field digital 3D mammography was performed using standard CC and MLO projections CAD was used to evaluate this mammogram. Findings: Density: ??There are scattered areas of fibroglandular density-B RIGHT: No suspicious masses, groups of microcalcification or areas of architectural distortion identified. Stable typically benign parenchymal asymmetries LEFT: No suspicious masses, groups of microcalcifications or areas of architectural distortion identified.[Stable typically benign parenchymal asymmetries IMPRESSION: : 1. ??No mammographic evidence of malignancy. BI-RADS Category 2 benign findings Recommendation: Routine annual screening mammography is recommended Procedure Note Luzmaria Barriga MD - 02/13/2024 This is a summary report. The complete report is available in thepatient's medical record. If you cannot access the medical record, pleasecontact the sending organization for a detailed fax or copy. BILATERAL 3D DIGITAL SCREENING MAMMOGRAM History: Routine screening. No current breast complaints. Family historyof breast cancer in sister and aunt Comparison: Multiple priors dating back to 10/13/2020 Technique: Bilateral full-field digital 3D mammography was performed usingstandard CC and MLO projections CAD was used to evaluate this mammogram. Findings: Density: There are scattered areas of fibroglandular density-B RIGHT: No suspicious masses, groups of microcalcification or areas ofarchitectural distortion identified. Stable typically benign parenchymalasymmetries LEFT: No suspicious masses, groups of microcalcifications or areas ofarchitectural distortion identified.[Stable typically benign parenchymalasymmetries IMPRESSION: : 1. No mammographic evidence of malignancy. BI-RADS Category 2 benign findings Recommendation: Routine annual screening mammography is recommended Julieth Cain MD IMG XR PROCEDURES Final Result * Urine Albumin Creatinine Ratio (10/30/2023) Pathologist [facility] Urine Albumin Creatinine Ratio abstracted Historical Provider HEALTH MAINTENANCE Final Result * (ABNORMAL) Lipid panel (10/30/2023) [facility] LDL/HDL Ratio 5 Triglycerides 197(A) 0 - 150 mg/dL Cholesterol 201(A) 0 - 200 mg/dL HDL 40 >=40 mg/dL LDL Cholesterol 122(A) 0 - 100 mg/dL Blood Venous blood specimen / Unknown Result [facility] Provider LAB BLOOD ORDERABLES Deysi l Result * Hepatitis C Screening (10/25/2021) Pathologist [facility] Hepatitis C Screening abstracted Result [facility] Provider HEALTH MAINTENANCE Final Result * Colonoscopy (03/18/2019) Pathologist [facility] Colonoscopy no interpretation , abstracted Anatomical Region Laterality Modality Other Result [facility] Provider HEALTH MAINTENANCE Final Result from Last 3 Months or Most Recently Relevant to Health Maintenance Insurance [facility] [employer] Care Teams Lead Mason Tender Relationship Specialty Start Date End Date Julieth Cain MD [address] [place] [phone] PCP - General Internal Medicine 03/05/24
[2024-09-17 15:57] LABS: Alanine Aminotransferase 50 U/L (0-31); Albumin Level 4.8 g/dL (3.5-5.0); Alkaline Phosphatase 99 U/L (39-117); Anion Gap 11 (12-20); Aspartate Amino Transferase 35 U/L (5-31); Bilirubin Total 0.9 mg/dL (0.0-1.0); Blood Urea Nitrogen 14 mg/dL (9-16); Calcium 9.9 mg/dL (8.4-10.2); Carbon Dioxide 28 mmol/L (22-29); Chloride 104 mmol/L (96-108); Estimated Glomerular Filt Rate > 60; Glucose Random 158 mg/dL (60-115); Potassium 4.2 mmol/L (3.3-5.1); Sodium 139 mmol/L (135-145); Total Protein 7.7 g/dL (6.5-8.0)
== END 2024-09-17 13:33 | disposition home or self-care (01) ==
LOC: HO.LAB 13:32
PROVIDERS: PCP Internal Medicine; Visit Provider Student in an Organized Health Care Education/Training Program
DX: M15.9 Polyosteoarthritis, unspecified (principal); Z79.1 Long term (current) use of non-steroidal anti-inflammatories (NSAID)
CPT/HCPCS: 36415; 80053

== ENCOUNTER 2025-03-10 11:48 | Outpatient (REF) | payer OTHER, SELFPAY ==
--- OUTSIDE RECORDS SUMMARY | 2025-03-10 13:51 | XMS_ITS | Encounter Summary ---
Author Organization [employer] Address [address] [place] [address] Care Team Providers Care Drawer In Dobby Loom Name Role Phone Julieth Cain MD Primary Care Provider [phone] Encounter Details Date Type Department Care Team (Late st Contact Info) Description 02/05/2025 Results Follow-Up [address] [phone] Tr [place], [place] Social History Tobacco Use Types Packs/Day Years Used Date Smoking Tobacco: Never Smokeless Tobacco: Never Alcohol Use Standard Drinks/Week Comments No 0 (1 standard drink = 0.6 oz pur e alcohol) Comments Unknown Sex and Gender Information Value Date Recorded Sex Assigned at Not on file Legal Sex Female 8:50 AM EST Gender Identity Not on file Sexual Orientation Not on file documented as of this encounter Plan of Treatment Upcoming Encounters Date Type Department Care Team (Late Contact Info) Description 05/12/2025 11:30 AM EST Office Visit Adult Medicine [address] [phone] Julieth Cain MD [address] [place] [address] Scheduled Orders Name Type Priority Associated Diagnoses Orde r Schedule Hepatic function panel Lab Routine Transaminitis Expected: 05/04/2025, Expires: 02/09/2026 documented as of this encounter Visit Diagnoses Diagnosis Transaminitis- Primary Nonspecific elevation of levels of transaminase or lactic acid dehydrogenase (LDH) documented in this encounter Care Teams Drawer In Dobby Loom Relationship Specialty Start Date End Date Julieth Cain MD [address] [place] [phone] PCP - General Internal Medicine 03/05/24 documented as of this encounter
--- OUTSIDE RECORDS SUMMARY | 2025-03-10 13:51 | XMS_ITS | Clinical Summary ---
Author Organization [facility] Address [address] [place], [place] Phone Care Team Providers Care Lockstitch Hemmer Name Role Phone Julieth Cain MD Primary Care Provider [phone] Allergies Active Allergy Reactions Criticality Noted Date Comments Lisinopril Cough 10/18/2022 Penicillins Other 01/05/2011 Odor Medications FREESTYLE LANCETS MISC USE TO TEST BLOOD [...] Active ACETAMINOPHEN ORAL Take by mouth. Active polyethylene glycol (MIRALAX) 17 gram packet Take 17 g by mouth 1 (one) time each day. Active BD Alcohol Swabs pads, medicatedIndicatio ns:Type 2 diabetes mellitus without complications (CMS/[facility] V24, CMS/[facility] V28) APPLY 1 PIECE TOPICALLY ONCE. 100 each 2 5 Active solifenacin (VESICARE) 5 mg tablet TAKE 1 TABLET BY MOUTH EVERY DAY 90 tablet 1 5 Active rosuvastatin (CRESTOR) 20 mg tablet Take 1 tablet (20 mg total) by mouth 1 (one) time each day. 90 tablet 1 5 Active metFORMIN XR (GLUCOPHAGE-XR) 500 mg 24 hr tabletIndications: Type 2 diabetes mellitus without complications (CMS/[facility] V24, [facility] V28) Take 1 tablet (500 mg total) by mouth 2 (two) times a day with meals. 180 tablet 1 5 Active FreeStyle Lancets 28 gauge lancetsIndications :Type 2 diabetes mellitus without complications (CMS/[facility] V24, CMS/[facility] V28) Dx E11.9 100 each 3 5 Active blood sugar diagnostic (FreeStyle Lite Strips) test strip Dx E11.9 test blood sugars bid 100 each 3 5 Active amLODIPine (NORVASC) 5 mg tablet Take 1 tablet (5 mg total) by mouth 1 (one) time each day. 90 tablet 1 5 Active Active Problems Problem Noted Date Diagnosed Date Depression 02/04/2025 Anxiety 02/04/2025 Fibromyalgia 08/23/2022 COVID-19 05/16/2021 Overview (01/29/2024): 04/25/21 Hyperlipidemia 07/09/2019 Type 2 diabetes mellitus with obesity 07/09/2019 Overview (01/28/2025): 01/28/25 Regulatory IMO Update Type 2 diabetes mellitus wit hout complication, without long-term current use of insulin ([facility] V24, [facility] V28) 07/09/2019 Hypertension 05/09/2019 DERIK (stress urinary incontinence, female) 2019 Helicobacter pylori stool test positive 12/17/19 19 Overview (01/29/2024): Treated 11/2018 Plantar fasciitis 07/05/2011 RLS (restless legs syndrome) 07/05/2011 S/P vaginal hysterectomy 06/15/2008 Overweight (BMI 25.0-29.9) 05/26/2008 Hirsutism 07/07/2005 Encounters Date Type Department Care Team Description 02/05/2025 Telephone Adult Medicine [address] [phone] Adriana Cardoso PA 02/05/2025 Results Follow-Up Endocrinology - [address] [phone] Sulma Armando [place] 02/04/2025 11:30 AM EDT Office Visit Adult [address] [phone] Adriana Cardoso PA Routine physical examination (Primary Dx); Type 2 diabetes mellitus without complications ([facility] V24, [facility] V28); Primary hypertension; Hyperlipidemia, unspecified hyperlipidemia type; Mild peripheral edema; Screening examination for pulmonary tuberculosis; Need for vaccination against Streptococcus pneumoniae from Last 3 Months Immunizations Immunization Administration Dates Next Due Influenza Quadravalent, MDCK , 0.5ml, preservative free (Flucelvax) 6mo and older 01/03/2023,02/24/2022,02/23/2021,2018 Influenza Quadravalent, MDCK , 0.5ml, with preservative (Flucelvax) 6mo and older 01/03/2018 Influenza trivalent, recombi nant, 0.5mL, preservative free (Flublok) 9yo and older 01/05/2025 Influenza trivalent, with preservative (Fluzone; Afluria) 6mo and older 02/06/2017,02/04/2015,01/07/2014,2008 PPD Test 01/15/2019 Pneumococcal conjugate 20 va lent (Prevnar 20, PCV 20) 2mo and older 02/04/2025 Td Tetanus diptheria (Tdvax) 7yo and older [...] Lymphoma Brother Prostate cancer Father Leukemia Mother Testicular cancer Nephew sister's s on Brain cancer Other nephew- at Breast cancer [...] Aunt 1 Aunt 2 Brother Father Mother Nephew Alive Other Sister 1 at age 42 Alive [...] Sexual Orientation Not on file Obstetrics History Para Term AB IAB SAB Ectopic Multiple Livin g Live Births 0 0 0 Last Filed Vital Signs Vital Sign Reading Time Taken Comments Blood Pressure 122/82 02/04/2025 11:20 AM EDT Pulse 74 02/04/2025 11:20 AM EDT Temperature 36.3 C (97.4 F) 02/04/2025 11:20 AM EDT Respiratory Rate 12 02/04/2025 11:20 AM EDT Oxygen Saturation - - Inhaled Oxygen Concentration - - Weight 85.3 kg (188 lb 1.6 oz) 02/04/2025 11:20 AM EDT Height 157.5 cm (5' 2 ) 02/04/2025 11:20 AM EDT Body Mass Index 34.4 02/04/2025 11:20 AM EDT Plan of Treatment Upcoming Encounters Date Type Department Care Team (Late st Contact Info) Description 05/12/2025 11:30 AM EST Office Visit Adult Medicine [address] [phone] Julieth Cain MD [address] [place] [address] Health Maintenance Due Date Last Done Comments Diabetes: Annual Foot Exam 1978 Hepatitis B Vaccines (1 of 3 - 19+ 3-dose series) 08/20/1987 HIV Screening 04/08/2022 Social Influencers of Health Screening 04/08/2022 Depression Screening 04/30/2024 Diabetes: Blood Sugar Control Test (HGBA1C) 12/03/2024 06/05/2024, 01/31/2024, 10/30/2023, Additional history exists Diabetes: Annual Retina Eye Exam 03/20/2025 03/20/2024 Diabetes: Annual Urine Albumin-Creatinine Ratio (uACR) 02/04/2026 02/04/2025, 10/30/2023 Diabetes: Annual GFR (Glomerular Filtration Rate) 02/04/2026 02/04/2025, 01/23/2024, 01/23/2024 Hypertension/CHF/CAD Annual BMP Blood Test 02/04/2026 02/04/2025, 01/23/2024, 01/23/2024 Breast Cancer Screening 11/11/2026 11/12/19, 11/02/2023, 11/02/2023, Additional history exists Colorectal Cancer Screening: Colonoscopy 03/18/2029 03/18/2019 Cholesterol Screening (Lipid Panel) 02/04/2030 02/04/2025, 10/30/2023, 10/30/2023 DTaP,Tdap,and Td Vaccines (4 - Td or Tdap) 09/28/2032 09/28/2022, 09/02/2012, 07/15/2004 RSV Immunization Adult Patients (1 - 1-dose 75+ series) 08/20/2043 Zoster Vaccines Completed 09/20/2021, 07/04/2021 Hepatitis C Screening Completed 10/25/2021 Influenza Vaccine Completed 01/05/2025, , 02/24/2022, Additional history exists Pneumococcal Vaccine: 50+ Years Completed 02/04/2025 COVID-19 Vaccine Discontinued HIB Vaccines Aged Out No longer eligi [...] Procedure Name Priority Date/Time Associated Diagnosis Comments INTERFERON GAMMA INTERPRETATION Routine 02/04/2025 12:34 PM EDT Screening examination for pulmonary tuberculosis INTERFERON GAMMA ANTIGEN 2 Routine 02/04/2025 12:34 PM EDT Screening examination for pulmonary tuberculosis INTERFERON GAMMA ANTIGEN 1 Routine 02/04/2025 12:34 PM EDT Screening examination for pulmonary tuberculosis INTERFERON GAMMA MITOGEN Routine 02/04/2025 12:34 PM EDT Screening examination for pulmonary tuberculosis INTERFERON GAMMA NIL Routine 02/04/2025 12:34 PM EDT Screening examination for pulmonary tuberculosis COMPREHENSIVE METABOLIC PANEL Routine 02/04/2025 12:34 PM EDT Routine physical examination LIPID PANEL WITH REFLEX TO DIRECT LDL Routine 02/04/2025 12:34 PM EDT Routine physical examination Hyperlipidemia, unspecified hyperlipidemia type THYROID STIMULATING HORMONE WITH REFLEX TO FREE T4 AND FREE T3 Routine 02/04/2025 12:34 PM EDT Routine physical examination INTERFERON GAMMA FOR TB, QUALITATIVE Routine 02/04/2025 12:34 PM EDT Screening examination for pulmonary tuberculosis MICROALBUMIN CREATININE URINE RATIO Routine 02/04/2025 12:34 PM EDT Type 2 diabetes mellitus without complications (CMS/HCC V24, CMS/HCC V28) MG MAMMO DIGITAL SCREENING W HUDSON BILAT Routine 11/11/2024 9:05 AM EDT Encounter for screening mammogram for breast cancer HEMOGLOBIN A1C Routine 06/05/2024 2:41 PM EST Type 2 diabetes mellitus without complication, without long-term current use of insulin (CMS/HCC V24, CMS/HCC V28) EXTERNAL DIABETIC RETINA EYE EXAM 03/20/2024 HEPATITIS C SCREENING Routine 10/25/2021 COLONOSCOPY Routine 03/18/2019 from Last 3 Months or Most Recently Relevant to Health Maintenance Results * Interferon gamma interpretation (02/04/2025 12:34 PM EDT) [facility] Quantiferon Plus Interpretation Negative Negative LAB CHEMISTRY METHOD 02/05/2025 9:38 AM EDT [facility] ([facility] Blood Venous blood specimen / Unknown Venipuncture / Unknown 02/04/2025 12:34 PM EDT 02/04/2025 12:34 PM EDT us Hagenkeith FERGUSON LAB BLOOD ORDERABLES Final Res ult [facility] ([facility] [address] [place] [address], [place] [phone] * Interferon gamma antigen 2 (02/04/2025 12:34 PM EDT) Blood Venous blood specimen / Unknown Venipuncture / Unknown 02/04/2025 12:34 PM EDT 02/04/2025 12:34 PM EDT us Wright Walker FERGUSON LAB BLOOD ORDERABLES Final Res ult Performing Organization Address City/[facility]/ZIP Co de Phone Number [facility] [address] [place] [address], [place] [phone] * Interferon gamma antigen 1 (02/04/2025 12:34 PM EDT) Blood Venous blood specimen / Unknown Venipuncture / Unknown 02/04/2025 12:34 PM EDT 02/04/2025 12:34 PM EDT us Wright Walker FERGUSON LAB BLOOD ORDERABLES Final Res ult Performing Organization Address City/[facility]/ZIP Co de Phone Number [facility] [address] [place] [address], [place] [phone] * Interferon gamma mitogen (02/04/2025 12:34 PM EDT) Blood Venous blood specimen / Unknown Venipuncture / Unknown 02/04/2025 12:34 PM EDT 02/04/2025 12:34 PM EDT us Wright Walker FERGUSON LAB BLOOD ORDERABLES Final Res ult Performing Organization Address City/[facility]/ZIP Co de Phone Number [facility] [address] [place] [address], [place] [phone] * Interferon gamma NIL (02/04/2025 12:34 PM EDT) Blood Venous blood specimen / Unknown Venipuncture / Unknown 02/04/2025 12:34 PM EDT 02/04/2025 12:34 PM EDT Adriana FERGUSON LAB BLOOD ORDERABLES Final Res ult Performing Organization Address [facility]/ZIP Co de Phone Number [facility] [address] [place] [address], [place] [phone] * Thyroid stimulating hormone with reflex to free t4 and free t3 (02/04/2025 12:34 PM EDT) [facility] TSH 1.25 0.40 - 4.00 mcIU/mL LAB CHEMISTRY METHOD 02/04/2025 5:[address] [facility] Blood Venous blood specimen / Unknown Venipuncture / Unknown 02/04/2025 12:34 PM EDT 02/04/2025 12:34 PM EDT Adriana FERGUSON LAB BLOOD ORDERABLES Final Res ult Performing Organization Address [facility] Co de Phone Number [facility] [address] [place] [address], [place] [phone] * (ABNORMAL) Lipid panel with reflex to direct LDL (02/04/2025 12:34 PM EDT) Pathologist [facility] Cholesterol 208(H) 0 - 200 mg/dL LAB CHEMISTRY METHOD 02/04/2025 4:[address] [facility] Triglycerides 202(H) 0 - 150 mg/dL LAB CHEMISTRY METHOD 02/04/2025 4:[address] [facility] HDL 43 >=40 mg/dL LAB CHEMISTRY METHOD 02/04/2025 4:[address] [facility] LDL Calculated 125(H) 0 - 100 mg/dL LAB CHEMISTRY METHOD 02/04/2025 4:[address] [facility] Comment:Estimated LDL Calcul ated using equation: Total cholesterol - HDL cholesterol - (Triglycerides/5) VLDL Cholesterol Woo 40.4 mg/dL LAB CHEMISTRY METHOD 02/04/2025 4:[address] [facility] Non HDL Chol. (LDL+VLDL) 165(H) <145 mg/dL LAB CHEMISTRY METHOD 02/04/2025 4:[address] [facility] Chol/HDL Ratio 4.8(H) 0.0 - 4.4 LAB CHEMISTRY METHOD 02/04/2025 4:[address] [facility] Blood Venous blood specimen / Unknown Venipuncture / Unknown 02/04/2025 12:34 PM EDT 02/04/2025 12:34 PM EDT us Adriana FERGUSON LAB BLOOD ORDERABLES Final Res ult [facility] [address] [place] [address], [place] [phone] * Microalbumin creatinine urine ratio (02/04/2025 12:34 PM EDT) Creatinine, Urine 187.0 mg/dL LAB CHEMISTRY METHOD 02/04/2025 3:[address] [facility] Microalb, Ur 13.6 0.0 - 29.0 mg/L LAB CHEMISTRY METHOD 02/04/2025 3:[address] [facility] Microalb/Creat Ratio 7 <30 mg/g creat LAB CHEMISTRY METHOD 02/04/2025 3:[address] [facility] Urine Urine specimen obtained by clean catch procedure / Unknown Non-blood Collection / Unknown 02/04/2025 12:34 PM EDT 02/04/2025 12:34 PM EDT us Adriana FERGUSON LAB URINE ORDERABLES Final Res ult [facility] [address] [place] [address], * (ABNORMAL) Comprehensive metabolic panel (02/04/2025 12:34 PM EDT) Sodium 138 133 - 145 mmol/L LAB CHEMISTRY METHOD 02/04/2025 4:42 PM [facility] Potassium 4.1 3.5 - 5.5 mmol/L LAB CHEMISTRY METHOD 02/04/2025 4:42 PM [facility] Chloride 105 96 - 110 mmol/L LAB CHEMISTRY METHOD 02/04/2025 4:42 PM [facility] CO2 28 21 - 32 mmol/L LAB CHEMISTRY METHOD 02/04/2025 4:42 PM [facility] Anion Gap 5 3 - 11 LAB CHEMISTRY METHOD 02/04/2025 4:42 PM [facility] Glucose 106(H) 70 - 100 mg/dL LAB CHEMISTRY METHOD 02/04/2025 4:42 PM [facility] BUN 13 5 - 25 mg/dL LAB CHEMISTRY METHOD 02/04/2025 4:42 PM [facility] Creatinine 0.61 0.50 - 1.10 mg/dL LAB CHEMISTRY METHOD 02/04/2025 4:42 PM [facility] eGFR 105 >=60 mL/min/1. 73m2 LAB CHEMISTRY METHOD 02/04/2025 4:42 PM [facility] Comment:Calculation based on the Chronic Kidney Disease Epidemiology Collaboration (CKD-EPI) equation refit without adjustment for race. BUN/Creatinine Ratio 21.3 LAB CHEMISTRY METHOD 02/04/2025 4:42 PM [facility] Calcium 10.0 8.5 - 10.5 mg/dL LAB CHEMISTRY METHOD 02/04/2025 4:42 PM [facility] AST (SGOT) 50(H) 10 - 42 unit/L LAB CHEMISTRY METHOD 02/04/2025 4:[address] [facility] ALT (SGPT) 76(H) 10 - 60 unit/L LAB CHEMISTRY METHOD 02/04/2025 4:[address] [facility] Alkaline Phosphatase 138(H) 42 - 121 unit/L LAB CHEMISTRY METHOD 02/04/2025 4:[address] [facility] Total Protein 7.8 6.0 - 8.0 g/dL LAB CHEMISTRY METHOD 02/04/2025 4:[address] [facility] Albumin 4.5 3.2 - 5.0 g/dL LAB CHEMISTRY METHOD 02/04/2025 4:[address] [facility] Total Bilirubin 1.4 0.0 - 1.4 mg/dL LAB CHEMISTRY METHOD 02/04/2025 4:[address] [facility] Blood Venous blood specimen / Unknown Venipuncture / Unknown 02/04/2025 12:34 PM EDT 02/04/2025 12:34 PM EDT Adriana FERGUSON LAB BLOOD ORDERABLES Final Res ult [facility] [address] [place] [address], * MG Mammo Digital Screening w [place] bilat (11/11/2024 9:05 AM EDT) Anatomical Region Laterality Modality Breast Bilateral Mammography 11/12/2024 1:39 PM EDT Impressions 11/12/2024 2:47 PM EDT 1. No mammographic evidence of malignancy 2. Scattered fibroglandular tissue BI-RADS CATEGORY: 2 - BENIGN RECOMMENDATION: Screening bilateral mammogram is recommended in 1 year. Mammo Location: [facility], [address] [place] [address], [id number], . -------- FINAL REPORT -------- Dictated By: Luzmaria Barriga Dictated Date: 11/12/2024 13:39 ET Assigned Physician: Luzmaria Barriga Reviewed and Electronically Signed By: Luzmaria Barriga Signed Date: 11/12/2024 14:47 ET Workstation ID: [id number] Transcribed By: Self Edit Transcribed Date: 11/12/2024 13:42 ET Narrative 11/12/2024 2:47 PM EDT A BILATERAL DIGITAL 3D SCREENING MAMMOGRAPHY HISTORY: Routine screening. Family history of breast cancer in sister. COMPARISON: Multiple priors dating back to 10/13/2020 Technique: Bilateral full field digital mammography (3D) was performed using standard CC and MLO projections CAD was used to evaluate this mammogram. FINDINGS: Right: No suspicious masses, groups of microcalcification or areas of architectural distortion identified. Stable typically benign parenchymal asymmetries. Left: No suspicious masses, groups of microcalcification or areas of architectural distortion identified. Stable typically benign parenchymal asymmetries. BREAST DENSITY: B - There are scattered areas of fibroglandular density. Procedure Note Luzmaria Barriga MD - 11/12/2024 A BILATERAL DIGITAL 3D SCREENING MAMMOGRAPHY HISTORY: Routine screening. Family history of breast cancer in sister. COMPARISON: Multiple priors dating back to 10/13/2020 Technique: Bilateral full field digital mammography (3D) was performedusing standard CC and MLO projections CAD was used to evaluate this mammogram. FINDINGS: Right: No suspicious masses, groups of microcalcification or areas ofarchitectural distortion identified. Stable typically benign parenchymalasymmetries. Left: No suspicious masses, groups of microcalcification or areas ofarchitectural distortion identified. Stable typically benign parenchymalasymmetries. BREAST DENSITY: B - There are scattered areas of fibroglandular density. IMPRESSION: 1. No mammographic evidence of malignancy 2. Scattered fibroglandular tissue BI-RADS CATEGORY: 2 - BENIGN RECOMMENDATION: Screening bilateral mammogram is recommended in 1 year. Mammo Location: [facility], [address] [place] [address], [id number], . -------- FINAL REPORT -------- Dictated By: Luzmaria Barriga Dictated Date: 11/12/2024 13:39 ET Assigned Physician: Luzmaria Barriga Reviewed and Electronically Signed By: Luzmaria Barriga Signed Date: 11/12/2024 14:47 ET Workstation ID: [id number] Transcribed By: Self Edit Transcribed Date: 11/12/2024 13:42 ET Julieth Cain MD IM BI PROCEDURES Final Result * Hemoglobin A1c (06/05/2024 2:41 PM EST) Hemoglobin A1C 6.2 <6.5 % LAB CHEMISTRY METHOD 06/05/2024 8:[address] [facility] Mean Bld Glu Estim. 131 mg/dL LAB CHEMISTRY METHOD 06/05/2024 8:[address] [facility] Blood Venous blood specimen / Unknown Venipuncture / Unknown 06/05/2024 2:41 PM EST 06/05/2024 2:41 PM EST Adriana FERGUSON LAB BLOOD ORDERABLES Final Res ult [facility] [address] [place] [address], [place] [phone] * External Diabetic Retina Eye Exam Report (03/20/2024) Anatomical Region Laterality Modality Ultrasound Monica Wills Onbase IM US PROCEDURES Final Result * Hepatitis C Screening (10/25/2021) Hepatitis C Screening abstracted Historical Provider HEALTH MAINTENANCE Final Result * Colonoscopy (03/18/2019) Colonoscopy no interpretation , abstracted Anatomical Region Laterality Modality Other Historical Monica ESCOBAR HEALTH MAINTENANCE Final Result from Last 3 Months or Most Recently Relevant to Health Maintenance Insurance [facility] Care Teams Lockstitch Hemmer Relationship Specialty Start Date End Date Julieth Cain MD [address] [place] [address] PCP - General Internal Medicine 03/05/24
[2025-03-10 18:02] LABS: Albumin Level 4.6 g/dL (3.5-5.0); Anion Gap 10 (12-20); Calcium 9.6 mg/dL (8.4-10.2); Carbon Dioxide 27 mmol/L (22-29); Chloride 105 mmol/L (96-108); Potassium 4.2 mmol/L (3.3-5.1); Sodium 138 mmol/L (135-145); Total Protein 7.3 g/dL (6.5-8.0)
[2025-03-10 18:17] LABS: Alanine Aminotransferase 64 U/L (0-31); Alkaline Phosphatase 106 U/L (39-117); Aspartate Amino Transferase 42 U/L (5-31); Blood Urea Nitrogen 12 mg/dL (9-16); Estimated Glomerular Filt Rate > 60
== END 2025-03-10 11:49 | disposition home or self-care (01) ==
LOC: HO.HKASLDS 11:48
PROVIDERS: PCP Internal Medicine; Visit Provider Student in an Organized Health Care Education/Training Program
DX: Z79.1 Long term (current) use of non-steroidal anti-inflammatories (NSAID) (principal)
CPT/HCPCS: 36415; 80053

== ENCOUNTER 2025-03-18 14:03 | Outpatient (AMB) | payer OTHER, SELFPAY ==
--- NOTE | 2025-03-18 14:35 | A.OFFVIS_ITS ---
Vital Signs 03/18/25 14:41 Height 5 ft 1 in Weight 187 lb 9.814 oz BMI 35.4 BP 134/80 Blood Pressure Location Lt brachial Position Sitting Pulse 60 Pulse Source Pulse Oximeter Pulse Oximetry (%) 98 Oxygen Delivery Method Room Air Intake Visit Reasons: follow up Intake Note: Patient presents for RA follow up. Stock Control Clerk Required: Yes Stock Control Clerk Language: Publication Distributor Services: Stock Control Clerk Present Stock Control Clerk Name: Ailin [id number] Information Interpreted: non-clinical & clinical Allergies penicillins Allergy (Unknown, Uncoded 04/02/24 07:51) Itching Medication List - Last Reconciled 03/18/25 by Pallavi Gregory MD acetaminophen ER 650 mg PO DAILY atorvastatin 80 mg PO DAILY buspirone 5 mg PO TID celecoxib (Celebrex) 200 mg PO .every other day 90 days cyclobenzaprine 10 mg PO BID fluoxetine 10 mg PO DAILY gabapentin one capsule in the AM, two capsules at night; hydroxyzine HCl 10 mg PO TID lidocaine 5% 1 patch topical DAILY lisinopril 5 mg PO DAILY metformin ER 500 mg PO DAILY omeprazole 20 mg PO DAILY trazodone 50 mg PO BEDTIME triamcinolone acetonide 0.025% 1 appl topical BID HPI Comments Details: Patient is a 54-year-old female with hyperlipidemia, hypertension, diabetes, fibromyalgia and OA presents today for follow-up. Interval History: Patient has seen 04/02/24 with me - Not on DMARDs - Gabapentin 200mg AM, 600mg PM, cyclobenzaprine 10mg tid - Added celebrex 200mg daily - Received steroid inejction to right greater trochanteric bursa Today - Not on DMARDs - Gabapentin 200mg AM, 600mg PM, cyclobenzaprine 10mg tid, celebrex 200mg every other day - Steroid injection was helpful for her greater trochanteric bursitis - The addition of celebrex was helpful but we had to decrease it to every other day due to elevated LFTs - Continues to complain of whole body pain Rheumatologic History: Patient presented for initial evaluation 08/21/2022. At that time she was complaining of total body pain of 15-20 years duration. The exam was not consistent with active inflammatory arthritis. Diagnosis of fibromyalgia was made as well as osteoarthritis based on radiographs done at [place]. OA invo lving 1st MTP joints in the feet, cervical spine and lumbar spine. Current Rheumatology Medication(s): Gabapentin 200 mg in the morning, 600 mg in the evening Cyclobenzaprine 10 mg b.i.d. Celebrex 200mg every other day [facility] Medical History (Updated 04/02/24 @ 09:48 by Pallavi Gregory MD) NSAID long-term use Polyarticular osteoarthritis Trochanteric bursitis, right hip Helicobacter pylori stool test positive Surgical History History of bladder surgery Hx of colonoscopy H/O vaginal hysterectomy Family History Sister Breast cancer Father FH: prostate cancer Mother Leukemia Sister Colon polyps Brother Lymphoma Social History Alcohol intake: never Patient Tobacco Use Status: Never used Tobacco e-Cigarette/Vaping Use: Never Used Review of Systems Narrative Review of Systems Constitutional: Denies fever, chills, weight loss ENT: Denies vision changes, eye pain or eye redness, dental caries, dry mouth GI: Denies nausea, vomiting, diarrhea, abdominal pain, change in BM Pulm: Denies SOB, BOO, hemoptysis, wheezing Cards: Denies chest pain, palpitations Skin: Denies Raynaud's, rash, nail changes, photosensitivity, LEATHER SOFTENER: Denies headaches, weakness, paresthesias, recurrent falls MSK: as per HPI All other systems reviewed and are unremarkable except noted above Physical Exam Exam Exam: Vital signs reviewed Physical Examination CONSTITUITIONAL Patient alert and cooperative. Well appearing and in no apparent painful distress MSK Hands * Right Hand: Able to make a fist. No swelling or tenderness to palpation of the MCPs, PIPs or DIPs. * Left Hand: Able to make a fist. No swelling or tenderness to palpation of the MCPs, PIPs or DIPs. Wrists * Right Wrist: Full ROM to flexion and extension. No swelling or TTP * Left Wrist: Full ROM to flexion and extension. No swelling or TTP Elbows * Right Elbow: Full ROM. No swelling or TTP. No TTP of the medial epicondyle. No TTP of the lateral epicondyle * Left Elbow: Full ROM. No swelling or TTP. No TTP of the medial epicondyle. No TTP of the lateral epicondyle Shoulders * Right shoulder: Decreased ROM. No swelling noted. No TTP of the AC joint. No TTP of the subacromial bursa. No TTP of the posterior shoulder * Left shoulder: Decreased ROM. No swelling noted. No TTP of the AC joint. No TTP of the subacromial bursa. No TTP of the posterior shoulder Hip bursa: Mild TTP bilaterally Knees * Right knee: No swelling noted. No TTP of the knee joint line. TTP of pes anserine bursa * Left knee: No swelling noted. No TTP of the knee joint line. TTP of pes anserine bursa. Ankles * Right ankle: Good ankle dorsiflexion and plantar flexion. No swelling. No TTP of the ankle joint * Left ankle: Good ankle dorsiflexion and plantar flexion. No swelling. No TTP of the ankle joint Feet * Right foot: Negative squeeze test * Left foot: Negative squeeze test Tender points? * Tenderness to palpation of the bilateral trapezius, supraspinatus, anterior costochondral junctions, bilateral suboccipital muscle insertions SKIN No rashes Vital Signs: Last Vital Signs Pulse 60 03/18/25 14:41 BP 134/80 03/18/25 14:41 Pulse Ox 98 03/18/25 14:41 Oxygen Delivery Method Room Air 03/18/25 14:41 BMI result Body Mass Index 35.4 Results Reviewed Results Reviewed: Laboratory Tests 04/02/24 03/10/25 08:46 11:53 WBC 6.3 RBC 4.84 Hgb 14.7 Hct 42.9 Plt Count 251 ESR 9 Sodium 138 Potassium 4.2 Chloride 105 Carbon Dioxide 27 BUN 12 Creatinine 0.61 AST 42 H ALT 64 H C-Reactive Protein < 0.10 Assessment & Plan Assessment & Plan (1) Fibromyalgia: Code(s): M79.7 - Fibromyalgia Category: Medical Plan: #Fibromyalgia Patient is a 54 year old female with fibromyalgia here today for follow up Doing well overall with the adjustments but continues to have widespread pain Explained to patient that this is typical for fibromyalgia and there is no treatment that will remove her pain completely Plan - Celebrex 200mg every other day - Gabapentin 400mg AM and 800mg PM - Cyclobenzaprine 10mg bid - Repeat CMP in 1 month, if still elevated will stop celebrex - Advised to contact primary about decreasing cholesterol medication - RTC 6 months - Labs before visit: CBC, CMP, ESR, CRP (2) Trochanteric bursitis, right hip: Code(s): M70.61 - Trochanteric bursitis, right hip Category: Medical Plan: #Right greater trochanteric bursitis Improved (3) Polyarticular osteoarthritis: Code(s): M15.9 - Polyosteoarthritis, unspecified Category: Medical Plan: #Polyarticular OA Patient with polyarticular RA involving her hands, lumbar spine, neck and shoulders. (4) NSAID long-term use: Code(s): Z79.1 - alf (current) use of non-steroidal anti-inflammatories (NSAID) Category: Medical Plan: #Long-term Use of NSAIDs Discussed with patient the benefits and risk of NSAIDs for managing the rheumatic condition Benefits include: - Reduced the pain, improved mobility, and increased participation in activities Risks include: - GI upset, potential also worsening or formation (especially in patients > 65 years old) Recommended using proton pump inhibitors (PPIs) for the duration of NSAID use to reduce the risk of gastric ulcers Plan I spent 20 minutes reviewing the record and labs, seeing the patient, discussing the treatment plan and documenting in the medical record Coding Level of Care Code Est Pt Level 3 (82327) Complex EM visit Add On G2211 Diagnoses Fibromyalgia M79.7 Trochanteric bursitis, right hip M70.61 Polyarticular osteoarthritis M15.9 NSAID long-term use Z79.1
[2025-03-18 14:41] VITALS: BP 134/80; PULSE 60; O2SAT 98; BMI 35.4
== END 2025-03-18 15:23 | disposition home or self-care (01) ==
LOC: HO.RHES 14:03
PROVIDERS: PCP Internal Medicine; Visit Provider Student in an Organized Health Care Education/Training Program
DX: M79.7 Fibromyalgia (principal); M70.61 Trochanteric bursitis, right hip; M15.9 Polyosteoarthritis, unspecified; Z79.1 Long term (current) use of non-steroidal anti-inflammatories (NSAID)
CPT/HCPCS: 99213

== ENCOUNTER → 2025-03-18 14:03 | Outpatient (BNVA) | payer OTHER, SELFPAY | PROVIDERS: PCP Internal Medicine; Visit Provider Student in an Organized Health Care Education/Training Program | DX: M79.7 Fibromyalgia (principal); M70.61 Trochanteric bursitis, right hip; M15.9 Polyosteoarthritis, unspecified; Z79.1 Long term (current) use of non-steroidal anti-inflammatories (NSAID) | CPT/HCPCS: 99212 ==